=== PATIENT | male | born 1950 | race Two or more races ===

== ENCOUNTER 2018-02-02 21:59 | Emergency (ER) | payer MEDICARE, OTHER, MEDICAID ==
[~2018-02-02] VITALS: Ht 165.1 cm; Wt 80.0 kg
[2018-02-02 23:39] LABS: BASOPHILS % 0.4 % (0.0-2.0); EOSINOPHILS % 1.7 % (0.0-5.0); HEMOGLOBIN. 15.8 g/dL (14.0-18.0); LYMPHOCYTES % 22.3 % (20.0-50.0); MEAN CORPUSCULAR HEMOGLOBIN 31.8 pg (28.0-32.0); MEAN CORPUSCULAR VOLUME 88.6 fL (80.0-94.0); MEAN PLATELET VOLUME 9.4 fl (7.4-10.4); NEUTROPHILS % 68.6 % (40.0-76.0); PLATELET 238 x1000/uL (130-400); RED BLOOD CELL COUNT 4.96 mill/uL (4.7-6.1); RED CELL DISTRIBUTION WIDTH 13.6 % (11.6-14.6)
[2018-02-02 23:46] LABS: CHLORIDE 105 mEq/L (98-107)
[2018-02-03 06:00] VITALS: BP 148/86
== END 2018-02-03 07:00 | disposition left against medical advice (07) ==
LOC: ER 21:59
DX: I10 Essential (primary) hypertension (principal); Z88.0 Allergy status to penicillin
CPT/HCPCS: 36415; 80053; 85025; 99284